=== PATIENT | male | born 1940 | race Caucasian/White ===

== ENCOUNTER 2018-01-23 10:55 | Inpatient (IN) | payer MEDICARE ==
[2018-01-23 10:55] VITALS: BMI 31.0
--- NOTE | 2018-01-23 12:05 | C.PDOC ---
History Of Present Illness 77 y/o male presents to ED with complaints of redness to bilateral arms and legs for over 1 year. Patient states he saw Dr. Aguilera for surgery consult and was instructed to come to ED for evaluation and possible admission. Patient denies fever, falls/injury, chest pain, sob, cough. Time Seen by Provider: 01/23/18 11:22 Chief Complaint (Nursing): Abnormal Skin Integrity History Per: Patient, Family History/Exam Limitations: no limitations Onset/Duration Of Symptoms: Persistent Current Symptoms Are (Timing): Still Present Severity: Moderate Past Medical History Reviewed: Historical Data, Nursing Documentation, Vital Signs Vital Signs: Last Vital Signs Temp 98.9 F 01/24/18 08:14 Pulse 69 01/24/18 08:14 Resp 20 01/24/18 08:14 BP 120/69 01/24/18 08:14 Pulse Ox 99 01/24/18 08:14 - Medical History PMH: HTN, Hypercholesterolemia Surgical History: No Surg Hx Family History: States: No Known Family Hx - Social History Hx Alcohol Use: No Hx Substance Use: No - Immunization History Hx Tetanus Toxoid Vaccination: No Hx Influenza Vaccination: No Hx Pneumococcal Vaccination: No Review Of Systems Except As Marked, All Systems Reviewed And Found Negative. Constitutional: Negative for: Fever, Chills Cardiovascular: Negative for: Chest Pain Respiratory: Negative for: Cough, Shortness of Breath Musculoskeletal: Positive for: Leg Pain (Redness) Physical Exam - Physical Exam Appears: Well, Non-toxic, No Acute Distress Skin: Warm, Dry ( thickened, dry scaly areas to at bilateral forearms and legs, erythematous, chronic in appearance, no fluctuance/induration), No Rash Head: Normacephalic Oral Mucosa: Moist Neck: Supple Cardiovascular: Rhythm Regular Respiratory: Normal Breath Sounds, No Rales, No Rhonchi, No Wheezing Extremity: Pedal Edema (+1 pitting edema B/L lower extremities), Capillary Refill (< 2 sec all digits), No Deformity Pulses: Left Dorsalis Pedis: Normal, Right Dorsalis Pedis: Normal Neurological/Psych: Oriented x3, Normal Motor, Normal Sensation Gait: Steady ED Course And Treatment - Laboratory Results Result Diagrams: 01/24/18 07:33 01/24/18 07:33 O2 Sat by Pulse Oximetry: 98 (RA) Pulse Ox Interpretation: Normal Progress Note: Blood work ordered and reviewed. Patient admitted to Dr. Aguilera's service, medicine consult Dr. Fay entered at his request. Disposition - Disposition Disposition: HOSPITALIZED Disposition Time: 13:54 Condition: STABLE - Clinical Impression Clinical Impression: Leg erythema, Arm erythema - Scribe Statement The provider has reviewed the documentation as recorded by the Delphineibe Austin Blackman All medical record entries made by the Delphineibe were at my direction and personally dictated by me. I have reviewed the chart and agree that the record accurately reflects my personal performance of the history, physical exam, medical decision making, and the department course for this patient. I have also personally directed, reviewed, and agree with the discharge instructions and disposition. Decision To Admit - Pt Status Changed To: Hospital Disposition Of: Observation - . Bed Request Type: Regular Admitting Physician: Mango Aguilera Patient Diagnosis: Leg erythema, Arm erythema
[2018-01-23 12:20] LABS: BASO % 0.4 % (0.0-2.0); EOS # 0.2 K/uL (0.0-0.7); EOS % 2.7 % (0.0-4.0); HEMOGLOBIN 10.7 g/dL (12.0-18.0); LYMPH # 1.1 K/uL (1.0-4.3); LYMPH % 16.4 % (20.0-40.0); MEAN CELL VOLUME 82.7 fL (80.0-94.0); MEAN CORPUSCULAR HEMOGLOBIN 28.5 pg (27.0-31.0); MEAN CORPUSCULAR HGB CONC 34.5 g/dL (33.0-37.0); MEAN PLATELET VOLUME 9.3 fL (7.2-11.7); MONO # 0.6 K/uL (0.0-0.8); MONO % 8.5 % (0.0-10.0); NEUT # 4.8 K/uL (1.8-7.0); NRBC % 0.1 % (0.0-2.0); RBC 3.76 Mil/uL (4.40-5.90); RED CELL DISTRIBUTION WIDTH 13.7 % (11.5-14.5); WHITE BLOOD COUNT 6.6 K/uL (4.8-10.8)
[2018-01-23 12:32] LABS: ALB/GLOB RATIO 0.8 (1.0-2.1); ALBUMIN 3.6 g/dL (3.5-5.0); ALT/SGPT 15 U/L (21-72); AST/SGOT 20 U/L (17-59); BLOOD UREA NITROGEN 21 mg/dL (9-20); CALCIUM 8.7 mg/dl (8.6-10.4); GFR AFRICAN-AMERICAN > 60; GFR NON-AFRICAN AMERICAN > 60
[2018-01-23 12:39] LABS: INR 1.2; PROTHROMBIN TIME 13.3 SECONDS (9.7-12.2)
[2018-01-23 14:06] VITALS: RESP 20
--- NOTE | 2018-01-23 14:44 | RAD ---
PROCEDURE: CHEST RADIOGRAPH, 1 VIEW HISTORY: OR CLEARANCE COMPARISON: Chest radiographs 12/25/2017 prior FINDINGS: LUNGS: No interval infiltrate identified bilaterally. PLEURA: No pneumothorax or pleural fluid seen. CARDIOVASCULAR: Normal. OSSEOUS STRUCTURES: No significant abnormalities. VISUALIZED UPPER ABDOMEN: Normal. OTHER FINDINGS: None. IMPRESSION: No interval acute cardiopulmonary disease appreciated.
[2018-01-23] MEDS ORDERED: Lidocaine/Epinephrine 1% 1:100000 10 ML IJ ONE (15:35)
[2018-01-23] MEDS ORDERED: Bupivacaine 0.25% Inj(30mL) ONE (15:35)
[2018-01-23] MEDS ORDERED: Acetaminophen-Codeine 300/30 mg Tab PO PRN (17:00)
[2018-01-23] MEDS: ceFAZolin 1 GM in Sodium Chloride 0.9% 100 ML IVPB SCH (17:00)
[2018-01-23] MEDS: Ammonium Lactate 12% Lotion (225 g) EXT SCH (21:00)
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
[2018-01-24] MEDS: ceFAZolin 1 GM in Sodium Chloride 0.9% 100 ML IVPB SCH ×2 (00:31→08:39)
--- NOTE | 2018-01-24 03:15 | OP ---
PROCEDURE DATE: 01/23/2018 PREOPERATIVE DIAGNOSIS: Cellulitis in both forearms with bilateral infected masses. POSTOPERATIVE DIAGNOSIS: Cellulitis in both forearms with bilateral infected masses. PROCEDURE: Wide deep excision, bilateral infected inflammatory masses of the forearms with adjacent tissue transfer closure. SURGEON: Mango Aguilera MD TYPE OF ANESTHESIA: General. ESTIMATED BLOOD LOSS: 30 mL. POSTOPERATIVE CONDITION: Stable. PROCEDURE: The patient was taken to the operating room and placed in the supine position. Both forearms were prepped and draped. Local anesthesia was first administered in the left forearm. A generous elliptical incision was made surrounding a 4 cm mass. It was carried down to the fascial layer. Bleeding was controlled using the Bovie. The mesh was completely excised. Full-thickness tissue flaps were raised and advancement flap closure was performed with multiple layers of Monocryl, subcuticular Monocryl, and glue. The above was repeated on the right forearm with a 4.5 cm mass. The patient tolerated the procedure well and returned to the recovery room in stable condition. Mango Aguilera MD
[2018-01-24 08:04] LABS: BASO % 0.7 % (0.0-2.0); EOS # 0.3 K/uL (0.0-0.7); EOS % 4.6 % (0.0-4.0); HEMOGLOBIN 10.9 g/dL (12.0-18.0); LYMPH # 1.7 K/uL (1.0-4.3); LYMPH % 27.4 % (20.0-40.0); MEAN CELL VOLUME 83.8 fL (80.0-94.0); MEAN CORPUSCULAR HEMOGLOBIN 28.6 pg (27.0-31.0); MEAN CORPUSCULAR HGB CONC 34.1 g/dL (33.0-37.0); MONO # 0.6 K/uL (0.0-0.8); MONO % 9.3 % (0.0-10.0); NEUT # 3.5 K/uL (1.8-7.0); NRBC % 0.1 % (0.0-2.0); RBC 3.8 Mil/uL (4.40-5.90); RED CELL DISTRIBUTION WIDTH 14.2 % (11.5-14.5)
[2018-01-24 08:05] LABS: ALB/GLOB RATIO 0.8 (1.0-2.1); ALBUMIN 3.5 g/dL (3.5-5.0); ALT/SGPT 11 U/L (21-72); AST/SGOT 21 U/L (17-59); BLOOD UREA NITROGEN 18 mg/dL (9-20); GFR AFRICAN-AMERICAN > 60; GFR NON-AFRICAN AMERICAN > 60
[2018-01-24] MEDS: Ammonium Lactate 12% Lotion (225 g) EXT SCH (10:59)
[2018-01-24 11:21] VITALS: BP 120/69; PULSE 69; TEMP 98.9
[2018-01-24] MEDS ORDERED: Pneumococcal 23-Valent Vaccine IM ONE (12:30)
[2018-01-24] MEDS ORDERED: Influenza Vaccine 60 mcg/0.5 mL SYR (4YR UP) IM ONE (12:30)
--- NOTE | 2018-01-24 14:44 | CARD ---
APPROVED REPORT EKG Measurement Heart [id number] <Conclusion> Normal sinus rhythm Possible Inferior infarct, age undetermined Abnormal ECG
--- NOTE | 2018-01-24 23:01 | CP.PCM.DIS ---
Provider - Provider Date of Admission: 01/23/18 16:20 Attending physician: Mango Aguilera MD Time Spent in preparation of Discharge (in minutes): 25 Hospital Course - Lab Results Lab Results: Micro Results 01/23/18 11:58 Blood Blood Culture - Preliminary NO GROWTH AFTER 24 HOURS 01/23/18 11:58 Blood Blood Culture - Preliminary NO GROWTH AFTER 24 HOURS Most Recent Lab Values WBC 6.0 K/uL (4.8-10.8) 01/24/18 07:33 RBC 3.80 Mil/uL (4.40-5.90) L 01/24/18 07:33 Hgb 10.9 g/dL (12.0-18.0) L 01/24/18 07:33 Hct 31.9 % (35.0-51.0) L 01/24/18 07:33 MCV 83.8 fL (80.0-94.0) 01/24/18 07:33 MCH 28.6 pg (27.0-31.0) 01/24/18 07:33 MCHC 34.1 g/dL (33.0-37.0) 01/24/18 07:33 RDW 14.2 % (11.5-14.5) 01/24/18 07:33 Plt Count 290 K/uL (130-400) 01/24/18 07:33 MPV 9.0 fL (7.2-11.7) 01/24/18 07:33 Neut % (Auto) 58.0 % (50.0-75.0) 01/24/18 07:33 Lymph % (Auto) 27.4 % (20.0-40.0) 01/24/18 07:33 [place] % (Auto) 9.3 % (0.0-10.0) 01/24/18 07:33 Eos % (Auto) 4.6 % (0.0-4.0) H 01/24/18 07:33 Baso % (Auto) 0.7 % (0.0-2.0) 01/24/18 07:33 Neut # (Auto) 3.5 K/uL (1.8-7.0) 01/24/18 07:33 Lymph # (Auto) 1.7 K/uL (1.0-4.3) 01/24/18 07:33 [place] # (Auto) 0.6 K/uL (0.0-0.8) 01/24/18 07:33 Eos # (Auto) 0.3 K/uL (0.0-0.7) 01/24/18 07:33 Baso # (Auto) 0.0 K/uL (0.0-0.2) 01/24/18 07:33 PT 13.3 SECONDS (9.7-12.2) H 01/23/18 12:16 INR 1.2 01/23/18 12:16 APTT 28 SECONDS (21-34) 01/23/18 12:16 Sodium 141 mmol/L (132-148) 01/24/18 07:33 Potassium 4.2 mmol/L (3.6-5.2) 01/24/18 07:33 Chloride 102 mmol/L (98-107) 01/24/18 07:33 Carbon Dioxide 25 mmol/L (22-30) 01/24/18 07:33 Anion Gap 18 (10-20) 01/24/18 07:33 BUN 18 mg/dL (9-20) 01/24/18 07:33 Creatinine 1.0 mg/dL (0.8-1.5) 01/24/18 07:33 Est GFR ( Amer) > 60 01/24/18 07:33 Est GFR (Non-Af Amer) > 60 01/24/18 07:33 Random Glucose 110 mg/dL (75-110) 01/24/18 07:33 Calcium 8.0 mg/dl (8.6-10.4) L 01/24/18 07:33 Total Bilirubin 0.7 mg/dL (0.2-1.3) 01/24/18 07:33 AST 21 U/L (17-59) 01/24/18 07:33 ALT 11 U/L (21-72) L D 01/24/18 07:33 Alkaline Phosphatase 89 U/L (38-126) 01/24/18 07:33 Total Protein 7.7 g/dL (6.3-8.3) 01/24/18 07:33 Albumin 3.5 g/dL (3.5-5.0) 01/24/18 07:33 Globulin 4.2 gm/dL (2.2-3.9) H 01/24/18 07:33 Albumin/Globulin Ratio 0.8 (1.0-2.1) L 01/24/18 07:33 Blood Type A POSITIVE 01/23/18 12:23 Antibody Screen Negative 01/23/18 12:23 Discharge Plan - Discharge Medications Prescriptions: Mometasone 0.1% [Elocon 0.1%] 15 gm TP DAILY #1 tube - Follow Up Plan Condition: STABLE Disposition: HOME/ ROUTINE Instructions: Mometasone (Topical), Cellulitis (Skin Infection), Adult (DC), Wound Incision and Drainage (DC) Additional Instructions: FOLLOW UP WITH DR RAMSEY ON 02/01/18-- CALL FOR AN APPOINTMENT RESUME ALL PREOPERATIVE MEDS UNLESS OTHERWISE INSTRUCTED DO NOT REMOVE STERI STRIP, CHANGE BANDAGE NEEDED Referrals: Mango Aguilera MD [Staff Provider] -
[2018-01-25 16:56] VITALS: O2SAT 98
== END 2018-01-24 14:02 | disposition home or self-care (01) | DRG 575 ==
LOC: C.ER 10:55 → C.9E 13:54 → C.3T 14:31 → OBSVTOIN 16:20
PROVIDERS: ADMIT Surgery; ATTEND Surgery
PROC: 0JX Subcutaneous Tissue and Fascia, Transfer (ICD-10-PCS; 2018-01-23)
PROC: 0JXG0ZC Transfer Right Lower Arm Subcutaneous Tissue and Fascia with Skin, Subcutaneous Tissue and Fascia, Open Approach (ICD-10-PCS; 2018-01-23)
PROC: 0JBG0ZZ Excision of Right Lower Arm Subcutaneous Tissue and Fascia, Open Approach (ICD-10-PCS; 2018-01-23)
PROC: 0JBH0ZZ Excision of Left Lower Arm Subcutaneous Tissue and Fascia, Open Approach (ICD-10-PCS; principal; 2018-01-23 17:30)
DX: L03.113 Cellulitis of right upper limb (principal); I10 Essential (primary) hypertension; L03.114 Cellulitis of left upper limb; E78.00 Pure hypercholesterolemia, unspecified; B99.8 Other infectious disease; D17.22 Benign lipomatous neoplasm of skin and subcutaneous tissue of left arm; L57.8 Other skin changes due to chronic exposure to nonionizing radiation; L85.9 Epidermal thickening, unspecified